=== PATIENT | female | born 1990 | race Caucasian/White ===

== ENCOUNTER 2022-04-18 19:01 | Emergency (ER) | payer OTHER ==
[2022-04-18 19:56] LABS: RED BLOOD COUNT 4.74 M/UL (4.00-5.10); WHITE BLOOD COUNT 10.5 K/UL (4.5-11.0)
[2022-04-18 20:23] LABS: BUN/CREATININE RATIO 20 (0-10)
[2022-04-18] MEDS ORDERED: CEPHALEXIN500 M1 PO (22:31)
[2022-04-18] MEDS ORDERED: ZOFRAN ODT 4 MG4 MG PO (22:31)
== END 2022-04-18 22:42 | disposition left against medical advice (07) ==
LOC: ER1 19:01
PROVIDERS: Emergency Medicine
DX: J06.9 Acute upper respiratory infection, unspecified (principal); N30.00 Acute cystitis without hematuria; F17.210 Nicotine dependence, cigarettes, uncomplicated; Z88.5 Allergy status to narcotic agent; Z88.2 Allergy status to sulfonamides; Z20.822 Contact with and (suspected) exposure to COVID-19
CPT/HCPCS: 0240U; 80053; 81001; 83690; 84703; 85025; 93005; 99283; J0696; Q9967